=== PATIENT | female | born 1935 | race Caucasian/White ===

== ENCOUNTER 2020-12-15 16:18 | Observation (INO) ==
[2020-12-15] MEDS ORDERED: 0.9 % Sodium Chloride 1,000 ML IVC SCH (20:45)
[2020-12-15] MEDS ORDERED: Ondansetron 4 MG/2 ML VIAL IVP PRN (20:45)
[2020-12-15] MEDS ORDERED: Acetaminophen 325 MG TABLET PO PRN (20:45)
[2020-12-15] MEDS ORDERED: Naloxone 0.4 MG/ML INJ IVP PRN (20:45)
[2020-12-15 21:27] LABS: Hematocrit 37.2 % (35.3-44.9); Mean Corpuscular HGB Conc 32.3 g/dL (31.6-35.5); Mean Corpuscular Hemoglobin 31.3 pg (28.0-33.3); Mean Corpuscular Volume 96.9 fL (83.0-100.0); Mean Platelet Volume 11.9 fL (9.4-12.4); Platelet Count 126 K/mcL (140-400); Red Blood Count 3.84 M/mcL (3.82-4.97); Red Cell Distribution Width 12.3 % (11.5-14.5); White Blood Count 5.2 K/mcL (4.3-11.1)
[2020-12-15 21:46] LABS: Magnesium 1.8 mg/dL (1.6-2.6); Phosphorous 2.4 mg/dL (2.7-4.5); Potassium 3.4 mEq/L (3.5-5.1)
[2020-12-16 04:40] LABS: Bilirubin,Urine Negative (Negative); Blood,Urine Negative (Negative); Clarity,Urine Clear (Clear); Color,Urine Yellow (Yellow); Glucose,Urine (UA) Normal (Normal); Ketones,Urine Negative (Negative); Leukocyte Esterase,Urine Negative (Negative); Nitrite,Urine Negative (Negative); PH,Urine 6.5 pH Units (5.0-8.0); Protein,Urine Negative (Neg-Trace); Urobilinogen,Urine Normal (Normal)
[2020-12-16] MEDS ORDERED: Apixaban 2.5 MG TABLET PO SCH (09:00)
[2020-12-16] MEDS: Apixaban 5 MG TABLET PO SCH ×2 (09:48→21:36)
[2020-12-16] MEDS: Metoprolol XL (24 HR) Succ 25 MG TAB.ER.24H PO SCH ×2 (09:48→21:36)
[2020-12-16 09:55] LABS: Folate 10.6 ng/mL (3.0-16.0)
[2020-12-16] MEDS ORDERED: 0.9 % Sodium Chloride 1,000 ML IVC SCH (11:00)
[2020-12-16] MEDS: amLODIPine 5 MG TABLET PO SCH (21:36)
[2020-12-17] MEDS: Apixaban 5 MG TABLET PO SCH ×2 (08:23→20:46)
[2020-12-17] MEDS: Metoprolol XL (24 HR) Succ 25 MG TAB.ER.24H PO SCH ×2 (08:24→20:46)
[2020-12-17] MEDS: amLODIPine 5 MG TABLET PO SCH (20:45)
[2020-12-18 08:12] LABS: Alanine Aminotransferase 14 Units/L (7-52); Albumin 3.6 g/dL (3.5-5.7); Albumin/Globulin Ratio 1.3 (1.1-2.2); Alkaline Phosphatase 82 Units/L (34-104); Aspartate Amino Transferase 21 Units/L (13-39); BUN/Creatinine Ratio 17 (6-26); Bilirubin,Total 0.8 mg/dL (0.3-1.0); Blood Urea Nitrogen 18 mg/dL (8-23); Calcium 9.3 mg/dL (8.6-10.3); Carbon Dioxide 33 mEq/L (23-29); Chloride 101 mEq/L (98-107); Globulin 2.7 g/dL (2.4-3.5); Glucose 94 mg/dL (70-105); Osmolality,Calculated 290 (280-300); Sodium 139 mEq/L (136-145); Total Protein 6.3 g/dL (6.4-8.9); eGFR For African Americans > 60 (> 60); eGFR For Non-African Americans 50 (> 60)
[2020-12-18] MEDS: Apixaban 5 MG TABLET PO SCH ×2 (09:01→20:28)
[2020-12-18] MEDS: Metoprolol XL (24 HR) Succ 25 MG TAB.ER.24H PO SCH ×2 (09:02→20:28)
[2020-12-18] MEDS: amLODIPine 5 MG TABLET PO SCH (20:28)
[2020-12-19] MEDS: Apixaban 5 MG TABLET PO SCH ×2 (08:02→21:04)
[2020-12-19] MEDS: Metoprolol XL (24 HR) Succ 25 MG TAB.ER.24H PO SCH ×2 (08:02→21:04)
[2020-12-19] MEDS: amLODIPine 5 MG TABLET PO SCH (21:04)
[2020-12-20] MEDS: Metoprolol XL (24 HR) Succ 25 MG TAB.ER.24H PO SCH ×2 (09:44→20:50)
[2020-12-20] MEDS: Apixaban 5 MG TABLET PO SCH ×2 (09:44→20:51)
[2020-12-20] MEDS: amLODIPine 5 MG TABLET PO SCH (20:50)
[2020-12-21 07:26] LABS: Basophils % 0.2 %; Eosinophils # 0.1 K/mcL (0.0-0.6); Eosinophils % 1.6 %; Hematocrit 38.5 % (35.3-44.9); Hemoglobin 12.5 g/dL (11.5-15.4); Immature Granulocytes % 0.3 % (0-4); Lymphocytes # 1.1 K/mcL (0.6-4.6); Lymphocytes % 17.1 %; Mean Corpuscular HGB Conc 32.5 g/dL (31.6-35.5); Mean Corpuscular Volume 95.5 fL (83.0-100.0); Mean Platelet Volume 11.9 fL (9.4-12.4); Monocytes # 0.5 K/mcL (0.0-1.3); Monocytes % 8.5 %; Neutrophils # 4.6 K/mcL (1.6-8.9); Platelet Count 146 K/mcL (140-400); Red Blood Count 4.03 M/mcL (3.82-4.97); Red Cell Distribution Width 12.5 % (11.5-14.5); Segmented Neutrophils % 72.3 %; White Blood Count 6.4 K/mcL (4.3-11.1)
[2020-12-21 07:53] LABS: Potassium 4.4 mEq/L (3.5-5.1)
[2020-12-21] MEDS: Metoprolol XL (24 HR) Succ 25 MG TAB.ER.24H PO SCH ×2 (08:38→20:42)
[2020-12-21] MEDS: Apixaban 5 MG TABLET PO SCH ×2 (08:39→20:42)
[2020-12-21 19:50] VITALS: TEMP 98.7; O2SAT 95
[2020-12-21] MEDS: amLODIPine 5 MG TABLET PO SCH (20:42)
[2020-12-22 07:29] VITALS: PULSE 59; RESP 18
[2020-12-22] MEDS: Metoprolol XL (24 HR) Succ 25 MG TAB.ER.24H PO SCH (09:16)
[2020-12-22] MEDS: Apixaban 5 MG TABLET PO SCH (09:17)
[2020-12-22 13:00] VITALS: BP 112/72
== END 2020-12-22 15:00 ==
LOC: INPPIK
PROVIDERS: ADMIT Family Medicine; ATTEND Family Medicine